=== PATIENT | male | born 1955 | race Caucasian/White ===

== ENCOUNTER 2021-06-16 09:56 | Inpatient (IN) ==
[2021-06-16] MEDS ORDERED: SODIUM CHLORIDE 0.9% 1000ML 1,000 ML IV ONE (11:14)
[2021-06-16 11:26] LABS: Basophils # (auto) 0.01 K/uL (0-0.2); Basophils % (auto) 0.1 %; Eosinophils # (auto) 0.03 K/uL (0-0.5); Eosinophils % (auto) 0.2 %; Hematocrit (blood only) 44.6 % (42-52); Hemoglobin 15.6 g/dL (14.0-18.0); Immature Granulocytes # (auto) 0.05 K/uL (0.00-0.02); Immature Granulocytes % (auto) 0.3 %; Lymphocytes # (auto) 1.75 K/uL (1.2-3.4); Lymphocytes % (auto) 11.1 %; Mean Corpuscular Hemoglobin 30.9 pg (25-34); Mean Corpuscular Volume 88.3 fL (80-100); Monocytes # (auto) 1.71 K/uL (0.11-0.59); Monocytes % (auto) 10.9 %; Neutrophils # (auto) 12.21 K/uL (1.4-6.5); Neutrophils % (auto) 77.4 %; Platelet Count 287 K/uL (130-400); RDW Coefficient of Variation 14.2 % (11.5-14.5); RDW Standard Deviation 46.1 fL (36.4-46.3); Red Blood Count 5.05 M/uL (4.7-6.1); White Blood Count 15.76 K/uL (4.8-10.8)
--- NOTE | 2021-06-16 11:41 | Emergency Department Note ---
Impression & Plan Weakness, Diaphoresis, Leukocytosis, Acute UTI, Hypokalemia ED Provider Note NAME: SCOOBY DONIS AGE: 65 SEX: M : 1955 ARRIVES VIA: Walk-In INFORMANT: [Patient] ED PROVIDER(S): [Ministerio Curtis MD] CHIEF COMPLAINT: Illness HISTORY OF PRESENT ILLNESS: The patient is a 65-year-old male who presents to the ED with sweats and some dizziness. The patient has had symptoms for a total of 5 days. He states that he sweats, he then gets chilled. He has had some fatigue and some subtle weakness/dizziness. He has noticed some sinus congestion and has had a subtle c ough. There has been some nausea without vomiting. No urinary complaints, no diarrhea. He states that when he drinks, it feels like a rock has been swallowed. The patient did see urgent care yesterday and had a negative Covid test. He presents today because his symptoms are ongoing. Of note, the patient has not been vaccinated for COVID-19. He states he does have a history of UTI about a month ago but again, has no current urinary symptoms. He denies any tick bites. REVIEW OF SYSTEMS: See HPI for pertinent positives and negatives. A total of ten systems were reviewed and were otherwise negative. PMHx/PSHx: See Below SOCIAL HISTORY: See Below. PHYSICAL EXAM: GENERAL: Patient is in no acute distress. HEENT: No acute trauma, normocephalic atraumatic, mucous membranes moist, no nasal congestion, no scleral icterus. NECK: No stridor, no adenopathy, no meningismus, trachea is midline. LUNGS: Clear to auscultation bilaterally, no wheeze, no rhonchi, breath sounds equal. HEART: Without murmurs gallops or rubs, regular rate and rhythm. ABDOMEN: Soft, nontender, bowel sounds positive, no hernias, no peritonitis. EXTREMITIES: No cyanosis or edema, full range of motion of all the joints without pain or difficulty, no signs for acute trauma. NEUROLOGIC: Oriented x 3, no acute motor or sensory deficits, no focal weakness. SKIN: No rash, no jaundice, no diaphoresis. DIFFERENTIAL DIAGNOSIS: Infection, dehydration, metabolic abnormality, hypo/hyperglycemia, Lyme disease, anaplasmosis, COVID-19, electrolyte disturbance, anemia, hypoxia, cardiac sources, intracerebral event, toxicologic issues, stroke, TIA, as well as other pathologies. EMERGENCY DEPARTMENT COURSE/PROCEDURES: ECG: Indication was weakness and dizziness. The ECG shows a sinus tachycardia with a rate of 101. There is some nonspecific ST change. There is no ST elevation. No PVCs. The QTc is 448. Continuous Cardiac Monitoring: An order was placed for continuous cardiac monitoring. The monitor shows a rate of 92 with normal sinus rhythm. MEDICAL DECISION MAKING: There is a moderate leukocytosis which would be consistent with infection. There is a normal hemoglobin and platelet count. Sodium and potassium were both somewhat low. No kidney failure. Lactic acid level was not elevated making sepsis less likely. No worrisome liver enzyme elevation. The patient appeared to be in a euthyroid state. ECG showed a sinus tachycardia, no acute ischemia. Cardiac enzyme testing x1 was not consistent with acute cardiac injury. Urinalysis was suggestive of infection. Covid testing returned negative. Lyme disease testing returned negative. Chest film did not show any obvious pneumonia or CHF. The patient received IV saline, 1 L. He was given oral and IV potassium. He received IV ceftriaxone as antibiotic therapy. I was able to review the patient's urine culture from April of this year. It grew Proteus and Enterococcus. The patient presents with sweats, fatigue and weakness. He has a low sodium and potassium. He appears to have a UTI. This infection could explain his sweats and weakness. The patient's urine culture results indicate that this will be a very difficult infection to treat. He may even have failed recent outpatient treatment for this UTI. The patient is in need of a hospital stay. I spoke to the patient and case folder. The on-call hospitalist was consulted. 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 GAVIN on CPAP Right corneal abrasion Surgical History H/O colonoscopy H/O vasectomy S/P rotator cuff repair S/P tonsillectomy Social History Smoking Status: Never smoker Preferred Language: [place] Feels Safe at Home: Yes Allergies Allergies Allergy/AdvReac Type Severity Reaction Status Date / Time No Known Allergies Allergy Unverified 06/16/21 11:46 Home Meds Home Medications Medication Instructions Recorded Confirmed chlorthalidone 25 mg tablet 25 mg PO QAM 11/05/19 06/16/21 [id number] 250 2 tab PO Q6H PRN 06/16/21 06/16/21 mg-250 mg-65 mg tablet (Excedrin Extra Strength) Results & Data (ED) Vital Signs Vital Signs - 24 hr 06/16/21 10:09 06/16/21 11:03 06/16/21 11:18 Temperature 36.6 C Temperature Source Temporal Artery Scan Pulse Rate 99 H 96 H 92 H Pulse Rate from SpO2 Sensor 96 H Respiratory Rate 18 19 Respiratory Effort / Characteristics Non-Labored Respiratory Depth Normal Blood Pressure 140/78 137/95 Blood Pressure Mean 98 109 Pulse Oximetry 96 94 98 Oxygen Delivery Method Room Air Sepsis Recent Fever Within 48 Hours No Sepsis New/Unexplained Change in Mental Status No Sepsis Action Taken by Nursing No Action Required 06/16/21 11:30 06/16/21 12:00 06/16/21 12:30 Temperature Temperature Source Pulse Rate 89 97 H 98 H Pulse Rate from SpO2 Sensor 89 97 H Respiratory Rate 21 19 22 Respiratory Effort / Characteristics Respiratory Depth Blood Pressure 131/93 143/90 H 129/86 Blood Pressure Mean 105 107 100 Pulse Oximetry 92 93 Oxygen Delivery Method Sepsis Recent Fever Within 48 Hours Sepsis New/Unexplained Change in Mental Status Sepsis Action Taken by Nursing 06/16/21 13:00 06/16/21 13:34 06/16/21 14:00 Temperature Temperature Source Pulse Rate 89 97 H 94 H Pulse Rate from SpO2 Sensor 90 95 H Respiratory Rate 19 20 23 Respiratory Effort / Characteristics Respiratory Depth Blood Pressure 148/92 H 189/119 H Blood Pressure Mean 110 142 Pulse Oximetry 93 96 Oxygen Delivery Method Sepsis Recent Fever Within 48 Hours Sepsis New/Unexplained Change in Mental Status Sepsis Action Taken by Nursing 06/16/21 14:31 Temperature Temperature Source Pulse Rate 91 H Pulse Rate from SpO2 Sensor 91 H Respiratory Rate Respiratory Effort / Characteristics Respiratory Depth Blood Pressure 193/126 H Blood Pressure Mean 148 Pulse Oximetry 95 Oxygen Delivery Method Sepsis Recent Fever Within 48 Hours Sepsis New/Unexplained Change in Mental Status Sepsis Action Taken by Long Term Medications Current Medication List: was personally reviewed by me Laboratory Data Attestation: I reviewed the patient's lab results. Result diagrams: 06/16/21 11:11 06/16/21 11:11 Lab Results 06/16/21 06/16/21 06/16/21 Range/Units 11:11 11:11 11:11 WBC 15.76 H (4.8-10.8) K/uL RBC 5.05 (4.7-6.1) M/uL Hgb 15.6 (14.0-18.0) g/dL Hct 44.6 (42-52) % MCV 88.3 (80-100) fL MCH 30.9 (25-34) pg MCHC 35.0 (32-36) g/dL RDW Std Deviation 46.1 (36.4-46.3) fL RDW Coeff of Leslee 14.2 (11.5-14.5) % Plt Count 287 (130-400) K/uL MPV 11.0 H (7.4-10.4) fL Immature Gran % (Auto) 0.3 % Neut % (Auto) 77.4 % Lymph % (Auto) 11.1 % [place] % (Auto) 10.9 % Eos % (Auto) 0.2 % Baso % (Auto) 0.1 % Neut # (Auto) 12.21 H (1.4-6.5) K/uL Lymph # (Auto) 1.75 (1.2-3.4) K/uL [place] # (Auto) 1.71 H (0.11-0.59) K/uL Eos # (Auto) 0.03 (0-0.5) K/uL Baso # (Auto) 0.01 (0-0.2) K/uL Immature Gran # (Auto) 0.05 H (0.00-0.02) K/uL Sodium 131 L (136-145) mmol/L Potassium 2.7 L (3.5-5.1) mmol/L Chloride 98 (98-107) mmol/L Carbon Dioxide 24 (21-32) mmol/L Anion Gap 9.0 (3-11) BUN 15 (7-18) mg/dl Creatinine 0.94 (0.6-1.4) mg/dl Est Cr Clr Drug Dosing 100.2 ml/min Est GFR ( Amer) 98.9 ml/min Est GFR (Non-Af Amer) 85.3 ml/min BUN/Creatinine Ratio 16.0 (10-20) Glucose 114 H (70-99) mg/dl Lactate (0.4-2.0) mmol/L Calcium 10.1 (8.5-10.1) mg/dl Magnesium 2.4 (1.8-2.4) mg/dl Total Bilirubin 1.1 H (0.2-1) mg/dl AST 23 (15-37) U/L ALT 33 (12-78) U/L Alkaline Phosphatase 92 (45-117) U/L Troponin I < 0.015 (0-0.045) ng/ml Total Protein 7.8 (6.4-8.2) gm/dl Albumin 3.2 L (3.4-5.0) gm/dl Globulin 4.6 H (2.5-4.0) gm/dl Albumin/Globulin Ratio 0.7 L (0.9-2) TSH 1.630 (0.300-4.500) uIu/ml Urine Color Urine Appearance (Clear) Urine pH (4.5-7.5) Ur Specific [place] (1.000-1.030) Urine Protein (Negative) Urine Glucose (UA) (Negative) Urine Ketones (Negative) Urine Blood (Negative) Urine Nitrite (Negative) Urine Bilirubin (Negative) Urine Urobilinogen (Negative) Ur Leukocyte Esterase (Negative) Urine WBC (Auto) (0-5) /hpf Urine RBC (Auto) (0-4) /hpf U Hyaline Cast (Auto) (0-5) /lpf U Epithel Cells (Auto) (0-5) /lpf Urine Bacteria (Auto) (Negative) Lyme Disease IgG Ab Negative (Negative) Lyme Disease IgM Ab Negative (Negative) COVID-19 Eval Order SARS-CoV-2 (PCR) (Negative) 06/16/21 06/16/21 06/16/21 Range/Units 11:18 11:18 12:12 WBC (4.8-10.8) K/uL RBC (4.7-6.1) M/uL Hgb (14.0-18.0) g/dL Hct (42-52) % MCV (80-100) fL MCH (25-34) pg MCHC (32-36) g/dL RDW Std Deviation (36.4-46.3) fL RDW Coeff of Leslee (11.5-14.5) % Plt Count (130-400) K/uL MPV (7.4-10.4) fL Immature Gran % (Auto) % Neut % (Auto) % Lymph % (Auto) % [place] % (Auto) % Eos % (Auto) % Baso % (Auto) % Neut # (Auto) (1.4-6.5) K/uL Lymph # (Auto) (1.2-3.4) K/uL [place] # (Auto) (0.11-0.59) K/uL Eos # (Auto) (0-0.5) K/uL Baso # (Auto) (0-0.2) K/uL Immature Gran # (Auto) (0.00-0.02) K/uL Sodium (136-145) mmol/L Potassium (3.5-5.1) mmol/L Chloride (98-107) mmol/L Carbon Dioxide (21-32) mmol/L Anion Gap (3-11) BUN (7-18) mg/dl Creatinine (0.6-1.4) mg/dl Est Cr Clr Drug Dosing ml/min Est GFR ( Amer) ml/min Est GFR (Non-Af Amer) ml/min BUN/Creatinine Ratio (10-20) Glucose (70-99) mg/dl Lactate 0.9 (0.4-2.0) mmol/L Calcium (8.5-10.1) mg/dl Magnesium (1.8-2.4) mg/dl Total Bilirubin (0.2-1) mg/dl AST (15-37) U/L ALT (12-78) U/L Alkaline Phosphatase (45-117) U/L Troponin I (0-0.045) ng/ml Total Protein (6.4-8.2) gm/dl Albumin (3.4-5.0) gm/dl Globulin (2.5-4.0) gm/dl Albumin/Globulin Ratio (0.9-2) TSH (0.300-4.500) uIu/ml Urine Color Urine Appearance (Clear) Urine pH (4.5-7.5) Ur Specific [place] (1.000-1.030) Urine Protein (Negative) Urine Glucose (UA) (Negative) Urine Ketones (Negative) Urine Blood (Negative) Urine Nitrite (Negative) Urine Bilirubin (Negative) Urine Urobilinogen (Negative) Ur Leukocyte Esterase (Negative) Urine WBC (Auto) (0-5) /hpf Urine RBC (Auto) (0-4) /hpf U Hyaline Cast (Auto) (0-5) /lpf U Epithel Cells (Auto) (0-5) /lpf Urine Bacteria (Auto) (Negative) Lyme Disease IgG Ab (Negative) Lyme Disease IgM Ab (Negative) COVID-19 Eval Order Covid19 at [facility] SARS-CoV-2 (PCR) NEGATIVE (Negative) 06/16/21 Range/Units 13:34 WBC (4.8-10.8) K/uL RBC (4.7-6.1) M/uL Hgb (14.0-18.0) g/dL Hct (42-52) % MCV (80-100) fL MCH (25-34) pg MCHC (32-36) g/dL RDW Std Deviation (36.4-46.3) fL RDW Coeff of Leslee (11.5-14.5) % Plt Count (130-400) K/uL MPV (7.4-10.4) fL Immature Gran % (Auto) % Neut % (Auto) % Lymph % (Auto) % [place] % (Auto) % Eos % (Auto) % Baso % (Auto) % Neut # (Auto) (1.4-6.5) K/uL Lymph # (Auto) (1.2-3.4) K/uL [place] # (Auto) (0.11-0.59) K/uL Eos # (Auto) (0-0.5) K/uL Baso # (Auto) (0-0.2) K/uL Immature Gran # (Auto) (0.00-0.02) K/uL Sodium (136-145) mmol/L Potassium (3.5-5.1) mmol/L Chloride (98-107) mmol/L Carbon Dioxide (21-32) mmol/L Anion Gap (3-11) BUN (7-18) mg/dl Creatinine (0.6-1.4) mg/dl Est Cr Clr Drug Dosing ml/min Est GFR ( Amer) ml/min Est GFR (Non-Af Amer) ml/min BUN/Creatinine Ratio (10-20) Glucose (70-99) mg/dl Lactate (0.4-2.0) mmol/L Calcium (8.5-10.1) mg/dl Magnesium (1.8-2.4) mg/dl Total Bilirubin (0.2-1) mg/dl AST (15-37) U/L ALT (12-78) U/L Alkaline Phosphatase (45-117) U/L Troponin I (0-0.045) ng/ml Total Protein (6.4-8.2) gm/dl Albumin (3.4-5.0) gm/dl Globulin (2.5-4.0) gm/dl Albumin/Globulin Ratio (0.9-2) TSH (0.300-4.500) uIu/ml Urine Color Dark Yellow Urine Appearance Clear (Clear) Urine pH 6.0 (4.5-7.5) Ur Specific [place] 1.016 (1.000-1.030) Urine Protein 1+ H (Negative) Urine Glucose (UA) Negative (Negative) Urine Ketones 1+ H (Negative) Urine Blood Trace H (Negative) Urine Nitrite Negative (Negative) Urine Bilirubin Negative (Negative) Urine Urobilinogen Positive H (Negative) Ur Leukocyte Esterase 1+ H (Negative) Urine WBC (Auto) 10-30 H (0-5) /hpf Urine RBC (Auto) 0-4 (0-4) /hpf U Hyaline Cast (Auto) 5-10 H (0-5) /lpf U Epithel Cells (Auto) 10-20 H (0-5) /lpf Urine Bacteria (Auto) Negative (Negative) Lyme Disease IgG Ab (Negative) Lyme Disease IgM Ab (Negative) COVID-19 Eval Order SARS-CoV-2 (PCR) (Negative) Administered Medications Discontinued Medications Sodium Chloride (Nss 1000ml) 1,000 mls @ 999 mls/hr IV .[id number] ONE Stop: 06/16/21 12:14 Last Infusion: 06/16/21 12:33 Dose: 0 mls/hr Documented by: [id number] Admin: 06/16/21 11:30 Dose: 999 mls/hr Documented by: [id number] Potassium Chloride (K Richard / Wtr) 10 meq in 100 mls @ 100 mls/hr IV ONE ONE Stop: 06/16/21 13:01 Last Infusion: 06/16/21 13:39 Dose: 0 mls/hr Documented by: [id number] Admin: 06/16/21 12:31 Dose: 100 mls/hr Documented by: [id number] Ceftriaxone Sodium (Rocephin) 2,000 mg in 70 mls @ 140 mls/hr IV NOW STA Stop: 06/16/21 14:22 Last Admin: 06/16/21 14:23 Dose: 140 mls/hr Documented by: [id number] Potassium Chloride (Potassium Chloride Crtab 20 Meq Tabcr) 40 meq PO NOW STA Stop: 06/16/21 12:03 Last Admin: 06/16/21 12:31 Dose: 40 meq Documented by: [id number] Imaging Data Radiologist's Impression: Chest X-Ray 06/16/21 11:16 XR chest 1V portable HISTORY: weakness COMPARISON: 07/08/2016. FINDINGS: The heart remains normal in size. Chronic right AC joint separation an old, healed right rib fractures are again noted. No new focal lung consolidations to suggest pneumonia. No evidence for pulmonary edema. There is a moderate hiatus hernia, unchanged. IMPRESSION: No significant change compared to the prior study. No acute process. ACT 112: Negative or not required by law. Electronically signed by: Suman Romero M.D. 06/16/2021 12:15 PM Discharge Plan Visit Data Chief Complaint: Dizziness Stated Complaint: SWEATS, LIGHT HEADED ED Provider: Ministerio Curtis Discharge Problem: Weakness, Diaphoresis, Leukocytosis, Acute UTI, Hypokalemia Patient Disposition: Admitted As Inpatient Condition: Fair Forms Stand Alone Forms: [facility], Virtual Emergency Department, Important Visit Information Prescriptions Prescriptions: No Action chlorthalidone 25 mg tablet 25 mg PO QAM RF: 0 Excedrin Extra Strength 250-250-65 mg Tablet 2 tab PO Q6H PRN (Reason: Pain) RF: 0 Referrals Referrals: Ishaan Houston MD [Primary Care Provider] -
[2021-06-16 11:49] LABS: Alanine Aminotransferase 33 U/L (12-78); Albumin Level 3.2 gm/dl (3.4-5.0); Aspartate Aminotransferase 23 U/L (15-37); Blood Urea Nitrogen 15 mg/dl (7-18); Calcium 10.1 mg/dl (8.5-10.1); Carbon Dioxide 24 mmol/L (21-32); Chloride 98 mmol/L (98-107); Creatinine Clr Calc Pharmacy 100.2 ml/min; Est GFR (African American) 98.9 ml/min; Est GFR (Non-African American) 85.3 ml/min; Glucose 114 mg/dl (70-99); Magnesium 2.4 mg/dl (1.8-2.4); Potassium 2.7 mmol/L (3.5-5.1); Sodium 131 mmol/L (136-145)
[2021-06-16 12:00] LABS: Albumin Globulin Ratio 0.7 (0.9-2); Alkaline Phosphatase 92 U/L (45-117); Bilirubin,Total 1.1 mg/dl (0.2-1); Globulin 4.6 gm/dl (2.5-4.0); Total Protein 7.8 gm/dl (6.4-8.2); Troponin I < 0.015 ng/ml (0-0.045)
[2021-06-16] MEDS ORDERED: POTASSIUM CHLORIDE / WTR 10 MEQ/100 ML PLCT IV ONE (12:02)
[2021-06-16] MEDS ORDERED: POTASSIUM CHLORIDE CRTAB 20 MEQ TABCR PO STA ×2 (12:02→15:19)
--- NOTE | 2021-06-16 12:17 | XRay Report ---
XR chest 1V portable HISTORY: weakness COMPARISON: 07/08/2016. FINDINGS: The heart remains normal in size. Chronic right AC joint separation an old, healed right ri b fractures are again noted. No new focal lung consolidations to suggest pneumonia. No evidence for p ulmonary edema. There is a moderate hiatus hernia, unchanged. IMPRESSION: No significant change compared to the prior study. No acute process. ACT 112: Negative or not required by law. Electronically signed by: Suman Romero M.D. 06/16/2021 12:15 PM
[2021-06-16 12:30] LABS: Lyme Ab IgG w/WB Rflx Negative (Negative); Lyme Ab IgM w/WB Rflx Negative (Negative)
[2021-06-16 13:48] LABS: Appearance Urine Clear (Clear); Bacteria Urine Automated Negative (Negative); Bilirubin Urine Negative (Negative); Blood Urine Trace (Negative); Color Urine Dark Yellow; Glucose Urine UA Negative (Negative); Ketones Urine 1+ (Negative); Leukocyte Esterase Urine 1+ (Negative); Nitrite Urine Negative (Negative); Protein Urine 1+ (Negative); RBC Urine Automated 0-4 /hpf (0-4); Specific Gravity Urine 1.016 (1.000-1.030); Urobilinogen Urine Positive (Negative)
[2021-06-16] MEDS ORDERED: cefTRIAXone SODIUM 2,000 MG/70 ML BAG IV STA (13:53)
--- NOTE | 2021-06-16 14:03 | Electrocardiogram Report ---
Test Reason : Blood Pressure : / mmHG Vent. Rate : 101 BPM Atrial Rate : 101 BPM P-R Int : 148 ms QRS Dur : 100 ms QT Int : 346 ms P-R-T Axes : 056 084 029 degrees QTc Int : 448 ms Sinus tachycardia Otherwise normal ECG When compared with ECG of 08-JUL-2016 10:27, No significant change was found Confirmed by Alejandro Carrasco ([id number]) on 06/16/2021 2:03:22 PM Referred By: REFERRED SELF Confirmed By:Carlos Carrasco
--- NOTE | 2021-06-16 15:15 | History & Physical Report ---
Date of Service June 16, 2021 Assessment & Plan (1) Weakness: (2) Leukocytosis: Plan: Pt is 65 y/o M with PMH GAVIN on CPAP, HTN, BPH, prediabetes, obesity presented to ER with c/o chills, diaphoresis, generalized weakness, frontal headache, nausea x 5 days. Denies abdominal pain, known fever, dysuria, hematuria, vomiting, diarrhea. Chronic postnasal drip which he feels may be increased In ER patient afebrile, P: 99, R: 18, BP: 140/78, 96% on room air. WBC: 15, lactate WNL, UA +1 leuk esterase, 10-30 WBC, 10-20 epithelial, no bacteria. Negative Lyme. Negative Covid 19 PCR. Chest x-ray unremarkable. In ER was given Rocephin, 1L NSS. Patient being admitted for further treatment and evaluation Patient meets sirs criteria with tachycardia, leukocytosis. Possible source urine. His previous left shoulder arthroscopy site appears without infection. -Urine culture pending -Blood culture pending -In ER given Rocephin -Zosyn -IVF -CBC, BMP in a.m. (3) Hypokalemia: Plan: K: 2.6. Magnesium WNL Patient reports poor oral intake past several days. Is also on chlorthalidone In ER given potassium chloride 40 mEq p.o., 1K rider -Supplement and monitor (4) HTN (hypertension): Plan: -Hold chlorthalidone at this time -Will start amlodipine (5) GAVIN on CPAP: Plan: -CPAP at bedtime DVT Prophylaxis -Lovenox SQ Full Code as per discussion with pt Follows with Dr Houston for routine care Pt was seen and care coordinated with Dr Reynolds. See addendum (6) BPH (benign prostatic hyperplasia): History of Present Illness Chief Complaint: Chills Primary Care Provider: Ishaan Houston MD Pt is 65 y/o M with PMH GAVIN on CPAP, HTN, BPH, prediabetes, obesity presented to ER with c/o chills x 5 days. Patient reports intermittent diaphoresis followed by chills, generalized weakness and fatigue, intermittent frontal headache for the past 5 days. Also reports nausea without vomiting. Denies any abdominal pain. Patient reports has chronic congestion and postnasal drip in mornings and will cough to clear his throat. He feels like he has been continuing to do this and has been having some of this throughout the day as well. Patient otherwise denies coughing, shortness of breath, chest pain. He reports had negative COVID-19 test at urgent care yesterday. In April he had dysuria and cloudy urine and on 04/27/2021 was treated with Bactrim followed by [place]. Had urine culture at that time + Proteus, Enterococcus. Patient feels his urine symptoms have resolved. 06/03/2021 had left arthroscopy rotator cuff repair by Dr. Christian. Feels the shoulder is healing well, denies any redness, edema, discharge or increased pain. Denies any known ill contacts. Did not have COVID-19 vaccine. Denies known fever, vomiting, diarrhea, constipation, syncope, vision changes, neck pain or stiffness, CP, SOB, orthopnea, palpitations, sore throat, choking, otalgia, rhinorrhea, abdominal pain, paresthesias, weakness, extremity weakness, extremity edema, rashes. In ER patient afebrile, P: 99, R: 18, BP: 140/78, 96% on room air. WBC: 15, lactate WNL, UA +1 leuk esterase, 10-30 WBC, 10-20 epithelial, no bacteria. Negative Lyme. Negative Covid. Chest x-ray unremarkable. In ER was given Rocephin, 1L NSS.. Patient being admitted for further treatment and evaluation Allergies Allergy/AdvReac Type Severity Reaction Status Date / Time No Known Allergies Allergy Unverified 06/16/21 11:46 Home Medications Medication Instructions Recorded Confirmed Type chlorthalidone 25 mg tablet 25 mg PO QAM 11/05/19 06/16/21 History mwfdagc-yyyopvuxbebns-cbdayceo 250 2 tab PO Q6H PRN 06/16/21 06/16/21 History mg-250 mg-65 mg tablet (Excedrin Extra Strength) Past Med/Surg History Medical History (Updated 06/16/21 @ 15:56 by Alana Lock PA-C) BPH (benign prostatic hyperplasia) Contracture of right Achilles tendon GERD (gastroesophageal reflux disease) History of hypertension Nontraumatic tear of right tibialis posterior tendon GAVIN on CPAP Right corneal abrasion Surgical History H/O colonoscopy H/O vasectomy S/P rotator cuff repair S/P tonsillectomy Family History (Updated 06/16/21 @ 15:53 by Alana Lock PA-C) Other Cancer Diabetes Hypertension Social History (Updated 06/16/21 @ 15:52 by Alana Lock PA-C) Smoking Status: Never smoker Hx Alcohol Use: Yes Alcohol Intake Frequency: Monthly or Less Hx Substance Use: No Preferred Language: Bhutanese Feels Safe at Home: Yes Review of Systems Review of Systems: All systems reviewed & are unremarkable except as noted in HPI & below Physical Exam Physical Exam: General: no distress, WDWN Head: normocephalic, atraumatic Eyes: PERRL, EOM's intact, conjunctiva non-injected, anicteric ENT: normal inspection external ears, nose, mucous membranes moist Neck: supple, trachea midline, ROM intact Lungs: clear, no respiratory distress, no wheezing/rhonchi/rales CV: RRR, no murmur, no pretibial edema Abd: normal BS, soft, non-tender, no CVA tenderness to palpation Ext: no cyanosis, no calf tenderness; left shoulder with healed surgical incision without erythema, edema or discharge. Neuro: A&O x 3, no focal deficits noted, normal affect Skin: warm, dry Results & Data Results & Data ([facility]) Vital Signs (Past 12 Hours) Vital Signs Temp Pulse Resp BP Pulse Ox 06/16/21 14:31 91 H 193/126 H 95 06/16/21 14:00 94 H 23 189/119 H 96 06/16/21 13:34 97 H 20 06/16/21 13:00 89 19 148/92 H 93 06/16/21 12:30 98 H 22 129/86 06/16/21 12:00 97 H 19 143/90 H 93 06/16/21 11:30 89 21 131/93 92 06/16/21 11:18 92 H 98 06/16/21 11:03 96 H 19 137/95 94 06/16/21 10:09 36.6 C 99 H 18 140/78 96 Laboratory Results Short CBC 06/16/21 Range/Units 11:11 WBC 15.76 H (4.8-10.8) K/uL Hgb 15.6 (14.0-18.0) g/dL Hct 44.6 (42-52) % Plt Count 287 (130-400) K/uL BMP 06/16/21 11:11 Sodium 131 L Potassium 2.7 L Chloride 98 Carbon Dioxide 24 BUN 15 Creatinine 0.94 Glucose 114 H Calcium 10.1 Cardiac Enzymes 06/16/21 Range/Units 11:11 Troponin I < 0.015 (0-0.045) ng/ml Liver Function 06/16/21 Range/Units 11:11 Total Bilirubin 1.1 H (0.2-1) mg/dl AST 23 (15-37) U/L ALT 33 (12-78) U/L Alkaline Phosphatase 92 (45-117) U/L Albumin 3.2 L (3.4-5.0) gm/dl Urine 06/16/21 Range/Units 13:34 Urine Color Dark Yellow Urine Appearance Clear (Clear) Urine pH 6.0 (4.5-7.5) Ur Specific [place] 1.016 (1.000-1.030) Urine Protein 1+ H (Negative) Urine Glucose (UA) Negative (Negative) Diagnostic Findings Chest X-Ray 06/16/21 11:16 XR chest 1V portable HISTORY: weakness COMPARISON: 07/08/2016. FINDINGS: The heart remains normal in size. Chronic right AC joint separation an old, healed right rib fractures are again noted. No new focal lung consolidations to suggest pneumonia. No evidence for pulmonary edema. There is a moderate hiatus hernia, unchanged. IMPRESSION: No significant change compared to the prior study. No acute process. ACT 112: Negative or not required by law. Electronically signed by: Suman Romero M.D. 06/16/2021 12:15 PM Supervising Physician Co-Signing Physician Notes I saw this patient with the physician assistant inventory manager, I participated in the history, physical, review of systems, and physical exam. I reviewed the medications with the patient and the physician assistant inventory manager and helped reconcile the medications. I helped take a detailed family and social history as well. I formulated the assessment and plan personally with the physician assistant inventory manager and went over it with the patient. Physical Exam Gen-AAO x 3, NAD, Afebrile Head-NCAT, EOMI, PERRLA, Anicteric Sclera, No Posterior Pharyngeal Erythema Neck-Supple, No JVD, No Thyromegaly, No Masses, No LAD, No Bruits Lungs-Clear to Auscultation Bilaterally, No Rales, No Rhonchi, No Wheezing, No Crepitus Chest-No S4, +S1, +S2, No S3, No Murmurs, No Rubs, No Gallops, No Ectopy Abdomen-Soft, Bowel Sounds Present, Non Tender, Non Distended, No Hepatomegaly, No Splenomegaly, No Palpable Masses, No Rebound, No Rigidity, No Guarding Musculoskeletal-Full Range of Motion Bilaterally, No CVAT Extremities-No Cyanosis, No Clubbing, No Edema Nuero-Cranial Nerves II-XII grossly intact, Motor WNL, DTRs WNL, Strength WNL, Non Focal Psych-Normal Mood (1) Leukocytosis Leukocytosis type: unspecified Qualified Code(s): D72.829 - Elevated white blood cell count, unspecified
[2021-06-16] MEDS ORDERED: CONSULT PHARMACY STA (15:44)
[2021-06-16] MEDS ORDERED: PIPERACILLIN/TAZOBACTAM 3.375 GM in DEXTROSE 5% 100 ML IV ONE (19:32)
[2021-06-16] MEDS ORDERED: amLODIPine BESYLATE 5 MG TAB PO ONE (19:32)
[2021-06-16] MEDS ORDERED: POLYETHYLENE (MIRALAX) 17 GM PACK PO PRN (19:32)
[2021-06-16] MEDS ORDERED: ACETAMINOPHEN 325 MG TAB PO PRN (19:32)
[2021-06-16] MEDS ORDERED: PIPERACILL/TAZOBAC CONSULT ACTIVE PRN (19:32)
[2021-06-16] MEDS ORDERED: ONDANSETRON INJ 2 MG/ML 2 ML VIAL IV PRN (19:32)
[2021-06-16] MEDS ORDERED: PIPERACILLIN/TAZOBACTAM 4.5 GM in DEXTROSE 5% 100 ML IV ONE (19:45)
[2021-06-16] MEDS ORDERED: NSS + 20MEQ KCL 20 MEQ/1,000 ML BAG IV SCH (20:00)
[2021-06-16] MEDS: ENOXAPARIN INJ 40 MG/0.4 ML SYR SQ SCH (20:20)
[2021-06-16] MEDS: TEMAZEPAM 15 MG CAPSULE PO PRN (20:48)
[2021-06-17] MEDS: PIPERACILLIN/TAZOBACTAM 4.5 GM in DEXTROSE 5% 100 ML IV SCH ×3 (01:35→17:56)
[2021-06-17 08:00] LABS: Basophils # (auto) 0.01 K/uL (0-0.2); Basophils % (auto) 0.1 %; Eosinophils # (auto) 0.09 K/uL (0-0.5); Eosinophils % (auto) 0.8 %; Hematocrit (blood only) 39.3 % (42-52); Hemoglobin 13.5 g/dL (14.0-18.0); Immature Granulocytes # (auto) 0.03 K/uL (0.00-0.02); Immature Granulocytes % (auto) 0.3 %; Lymphocytes # (auto) 1.56 K/uL (1.2-3.4); Lymphocytes % (auto) 14.5 %; Mean Corpuscular Hemoglobin 30.5 pg (25-34); Mean Corpuscular Hgb Conc 34.4 g/dL (32-36); Mean Corpuscular Volume 88.9 fL (80-100); Mean Platelet Volume 10.6 fL (7.4-10.4); Monocytes # (auto) 1.03 K/uL (0.11-0.59); Monocytes % (auto) 9.6 %; Neutrophils # (auto) 8.03 K/uL (1.4-6.5); Neutrophils % (auto) 74.7 %; Platelet Count 271 K/uL (130-400); RDW Coefficient of Variation 14.4 % (11.5-14.5); RDW Standard Deviation 46.8 fL (36.4-46.3); Red Blood Count 4.42 M/uL (4.7-6.1); White Blood Count 10.75 K/uL (4.8-10.8)
[2021-06-17 08:34] LABS: BUN Creatinine Ratio 13.6 (10-20); Calcium 9.4 mg/dl (8.5-10.1); Creatinine Clr Calc Pharmacy 103.5 ml/min; Est GFR (African American) 102.9 ml/min; Est GFR (Non-African American) 88.8 ml/min; Magnesium 1.9 mg/dl (1.8-2.4); Potassium 3.2 mmol/L (3.5-5.1)
[2021-06-17] MEDS: amLODIPine BESYLATE 5 MG TAB PO SCH (08:54)
[2021-06-17] MEDS ORDERED: POTASSIUM CHLORIDE CRTAB 20 MEQ TABCR PO STA (09:36)
--- NOTE | 2021-06-17 16:49 | Hospitalist Progress Note ---
Date of Service June 17, 2021 Assessment & Plan (1) Acute UTI: (2) Weakness: (3) Leukocytosis: Plan: Pt is 65 y/o M with PMH GAVIN on CPAP, HTN, BPH, prediabetes, obesity presented to ER with c/o chills, diaphoresis, generalized weakness, frontal headache, nausea x 5 days. Denies abdominal pain, known fever, dysuria, hematuria, vomiting, diarrhea. Chronic postnasal drip which he feels may be increased Mostly due to UTI On admission UA +1 leuk esterase, 10-30 WBC, 10-20 epithelial, no bacteria. Negative Covid 19 PCR. Chest x-ray unremarkable. Received IV Rocephin in the ER WBC on admission 15, then back to normal today Urine culture grew Enterococcus Was started on IV Zosyn We will follow up urine sensitivity Blood culture pending Clinically improved Continue monitor closely (4) Hypokalemia: Plan: K: 2.6. On admission Possible due to poor oral intake in the setting of diuretic Potassium is 3.2 K replaced continue monitor BMP (5) HTN (hypertension): Plan: Continue to hold chlorthalidone at this time Starting on amlodipine Continue monitor BP (6) GAVIN on CPAP: Plan: -CPAP at bedtime DVT Prophylaxis -Lovenox SQ Full Code (7) BPH (benign prostatic hyperplasia): Admission and Anticipated Discharge Date Admission Date: June 16, 2021 Subjective Patient was seen and examined for follow-up of chills and weakness Lying in bed with no distress watching TV Patient said that he feels much better He said his energy is better and has been walking in his room Denies any chest pain, palpitation, dizziness, shortness of breath. Physical Exam Physical Exam: General- No acute distress Head- atraumatic Eyes- PERRL, EOMI, ENT- oropharynx clear Neck- supple, no JVD Lungs- clear to auscultation Heart- regular rhythm; no murmur Abdomen- normal bowel sounds, soft, nontender Extremities- no calf tenderness Neuro- alert, oriented x 3; PERRL, EOMI; no facial palsy; no dysarthria Skin- warm & dry Results & Data Results & Data ([facility]) Vital Signs (Past 12 Hours) Vital Signs Temp Pulse Pulse Resp BP BP Pulse Ox 06/17/21 15:36 94 H 06/17/21 15:32 37.2 C 96 H 18 121/75 92 06/17/21 14:41 74 20 97 06/17/21 11:39 36.9 C 91 H 16 149/87 H 96 06/17/21 09:57 90 06/17/21 07:55 37.2 C 94 H 18 154/97 H 94 (1) Leukocytosis Leukocytosis type: unspecified Qualified Code(s): D72.829 - Elevated white blood cell count, unspecified
[2021-06-17] MEDS: TEMAZEPAM 15 MG CAPSULE PO PRN (20:22)
[2021-06-17] MEDS: ENOXAPARIN INJ 40 MG/0.4 ML SYR SQ SCH (20:23)
[2021-06-18] MEDS: PIPERACILLIN/TAZOBACTAM 4.5 GM in DEXTROSE 5% 100 ML IV SCH ×2 (01:51→08:07)
[2021-06-18] MEDS: amLODIPine BESYLATE 5 MG TAB PO SCH (08:07)
[2021-06-18 09:00] LABS: Hematocrit (blood only) 42.3 % (42-52); Hemoglobin 14.5 g/dL (14.0-18.0); Mean Corpuscular Hemoglobin 30.8 pg (25-34); Mean Corpuscular Hgb Conc 34.3 g/dL (32-36); Mean Corpuscular Volume 89.8 fL (80-100); Mean Platelet Volume 10.4 fL (7.4-10.4); Platelet Count 325 K/uL (130-400); RDW Coefficient of Variation 14.5 % (11.5-14.5); Red Blood Count 4.71 M/uL (4.7-6.1); White Blood Count 8.32 K/uL (4.8-10.8)
[2021-06-18 09:34] LABS: BUN Creatinine Ratio 16.9 (10-20); Calcium 10.2 mg/dl (8.5-10.1); Creatinine Clr Calc Pharmacy 114.3 ml/min; Est GFR (African American) 108.3 ml/min; Est GFR (Non-African American) 93.5 ml/min
[2021-06-18] MEDS ORDERED: AMOXICILLIN 500 MG CAP PO SCH (17:00)
[2021-06-18] MEDS ORDERED: POTASSIUM CHLORIDE CRTAB 20 MEQ TABCR PO STA (18:38)
[2021-06-18] MEDS ORDERED: POTASSIUM CHLORIDE 10 MEQ TABCR PO STA (18:38)
--- NOTE | 2021-06-18 19:13 | Discharge Summary ---
Date of Service June 18, 2021 Admission HPI Per Admitting Provider Pt is 65 y/o M with PMH GAVIN on CPAP, HTN, BPH, prediabetes, obesity presented to ER with c/o chills x 5 days. Patient reports intermittent diaphoresis followed by chills, generalized weakness and fatigue, intermittent frontal headache for the past 5 days. Also reports nausea without vomiting. Denies any abdominal pain. Patient reports has chronic congestion and postnasal drip in mornings and will cough to clear his throat. He feels like he has been continuing to do this and has been having some of this throughout the day as well. Patient otherwise denies coughing, shortness of breath, chest pain. He reports had negative COVID- 19 test at urgent care yesterday. In April he had dysuria and cloudy urine and on 04/27/2021 was treated with Bactrim followed by Macrobid. Had urine culture at that time + Proteus, Enterococcus. Patient feels his urine symptoms have resolved. 06/03/2021 had left arthroscopy rotator cuff repair by Dr. Christian. Feels the shoulder is healing well, denies any redness, edema, discharge or increased pain. Denies any known ill contacts. Did not have COVID-19 vaccine. Denies known fever, vomiting, diarrhea, constipation, syncope, vision changes, neck pain or stiffness, CP, SOB, orthopnea, palpitations, sore throat, choking, otalgia, rhinorrhea, abdominal pain, paresthesias, weakness, extremity weakness, extremity edema, rashes. In ER patient afebrile, P: 99, R: 18, BP: 140/78, 96% on room air. WBC: 15, lactate WNL, UA +1 leuk esterase, 10-30 WBC, 10-20 epithelial, no bacteria. Negative Lyme. Negative Covid. Chest x-ray unremarkable. In ER was given Rocephin, 1L NSS.. Patient being admitted for further treatment and evaluation Discharge Data Allergies Allergy/AdvReac Type Severity Reaction Status Date / Time No Known Allergies Allergy Unverified 06/16/21 11:46 Consultations 06/16/21 14:52 ED Decision to Admit Stat Hospital Course (1) Acute UTI: (2) Weakness: (3) Leukocytosis: Pt is 65 y/o M with PMH GAVIN on CPAP, HTN, BPH, prediabetes, obesity presented to ER with c/o chills, diaphoresis, generalized weakness, frontal headache, nausea x 5 days. Denies abdominal pain, known fever, dysuria, hematuria, vomiting, diarrhea. Chronic postnasal drip which he feels may be increased Mostly due to UTI On admission UA +1 leuk esterase, 10-30 WBC, 10-20 epithelial, no bacteria. Negative Covid 19 PCR. Chest x-ray unremarkable. Received IV Rocephin in the ER WBC on admission 15, then back to normal today Urine culture grew Enterococcus Was started on IV Zosyn We will follow up urine sensitivity Blood culture pending Clinically improved Continue monitor closely (4) Hypokalemia: K: 2.6. On admission Possible due to poor oral intake in the setting of diuretic Potassium is 3.2 K replaced continue monitor BMP (5) HTN (hypertension): Continue to hold chlorthalidone at this time Starting on amlodipine Continue monitor BP (6) GAVIN on CPAP: -CPAP at bedtime DVT Prophylaxis -Lovenox SQ Full Code (7) BPH (benign prostatic hyperplasia): Discharge Plan Discharge Items Patient Disposition: Home - Self-Care Reason For Visit: WEAKNESS Discharge Diagnosis: (1) Acute UTI: (2) Weakness: (3) Leukocytosis: (4) Hypokalemia Condition on Discharge: Fair Activity: Resume your previous activity Weightbearing: Full weightbearing Non-emergency contact: Primary Care Provider Call non-emergency contact if: you have any medication questions Follow-up/Referrals: Ishaan Houston MD [Primary Care Provider] - (Date & Time 06/25/2021 11:00 AM Provider B[facility] Department [facility] ) Diet: Heart Healthy Addtl Attending Provider Instructions: Follow up with your primary care provider Brook PORTILLO on 06/25/2021 @ 11:00 AM at the [facility] Complete the course of the antibiotic with amoxicillin Seek medical attention if your symptoms reoccur Increase Potassium supplement in your diet Check BMP within 1 week to monitor your electrolytes Your blood pressure medication (chlorthalidone) was changed to Amlodipine due to electrolytes abnormality Continue monitor your blood pressure and bring blood pressure log to your next appointment with your provider Fall precaution Pending Studies at Discharge: No Stand-Alone Forms: [facility], Smoking Cessation Medications and DC Order Prescriptions: New amoxicillin 500 mg Capsule 500 mg PO BIDM 5 Days Qty: 10 RF: 0 amlodipine [Norvasc] 5 mg Tablet 5 mg PO QAM 30 Days Qty: 30 RF: 0 potassium chloride 20 mEq tablet extended release 20 meq PO DAILY Qty: 30 RF: 0 Continued Excedrin Extra Strength 250-250-65 mg Tablet 2 tab PO Q6H PRN (Reason: Pain) RF: 0 Discontinued chlorthalidone 25 mg tablet 25 mg PO QAM RF: 0 Discharge Orders: Discharge Order (Routine); Ordered 06/18/21 Ordered By: Tommy Pretty Admission Data Admit Date/Time: 06/16/21 15:18 Attending Provider: Tommy Pretty Admit Provider: Manish Reynolds Primary Care Provider: Ishaan Houston Other Providers: Manish Reynolds
== END 2021-06-18 20:08 | disposition home or self-care (01) | DRG 690 ==
LOC: ED 09:56 → SUATTDRO 15:18 → 2W 15:18